=== PATIENT | male | born 1955 | race Caucasian/White ===

== ENCOUNTER → 2020-07-08 | Outpatient (CLI) | payer MEDICARE | END | disposition home or self-care (01) | LOC: RAH 13:07 | PROVIDERS: ATTEND Family Medicine Sports Medicine | DX: M17.11 Unilateral primary osteoarthritis, right knee (principal); M25.461 Effusion, right knee; Z98.890 Other specified postprocedural states | CPT/HCPCS: 73721 ==

== ENCOUNTER → 2020-10-07 | Outpatient (CLI) | payer MEDICARE | END | disposition home or self-care (01) | LOC: RAH 07:34 | PROVIDERS: ATTEND Family Medicine Sports Medicine | DX: M43.17 Spondylolisthesis, lumbosacral region (principal); M47.27 Other spondylosis with radiculopathy, lumbosacral region; M48.07 Spinal stenosis, lumbosacral region | CPT/HCPCS: 72148 ==

== ENCOUNTER 2020-11-05 12:00 | Day surgery (SDC) | payer MEDICARE ==
[2020-11-04 11:03] VITALS: BP 138/80
[~2020-11-05] VITALS: Ht 185.4 cm; Wt 112.3 kg
[2020-11-05] MEDS ORDERED: IOPAMIDOL 10 ML VIAL ONE (12:18)
[2020-11-05] MEDS ORDERED: LIDOCAINE HCL MPF 1% 5ML VIAL ONE (12:41)
[2020-11-05] MEDS ORDERED: DEXAMETHASONE SOD PHOSPHATE 4 MG/ML 1ML VIAL ONE (12:42)
[2020-11-05 12:44] VITALS: BP 145/81
[2020-11-05] MEDS ORDERED: SODIUM CHLORIDE 0.9% 10 ML VIAL ONE (12:56)
[2020-11-05 13:30] VITALS: BP 136/83
[2020-11-05 13:45] VITALS: BP 136/86
[2020-11-05 14:00] VITALS: BP 134/85
[2020-11-05 14:15] VITALS: BP 136/86
== END 2020-11-05 14:20 | disposition home or self-care (01) ==
LOC: DAH 12:00
PROVIDERS: ATTEND Family Medicine Sports Medicine
DX: M51.16 Intervertebral disc disorders with radiculopathy, lumbar region (principal); Z20.822 Contact with and (suspected) exposure to COVID-19; G89.29 Other chronic pain; Z20.828 Contact with and (suspected) exposure to other viral communicable diseases; Z79.899 Other long term (current) drug therapy; Z98.890 Other specified postprocedural states
CPT/HCPCS: 62323; A4215 ×2; A4221 ×2; A4222 ×2; A4223 ×3; A4606; A4663 ×2; C9803; J1100; J3490; Q9966; U0003; 62320; 77003

== ENCOUNTER 2021-08-02 08:00 | Observation (INO) | payer MEDICARE ==
[~2021-08-02] VITALS: Ht 185.4 cm; Wt 114.2 kg
[2021-08-02 10:15] VITALS: BP 151/80
[2021-08-02 10:32] LABS: BASOPHILS % (AUTO) 0.5 % (0.0-5.0); EOSINOPHILS % (AUTO) 3.7 % (0.0-8.0); HEMATOCRIT 49.3 % (42-54); LYMPHOCYTES % (AUTO) 18.3 % (21.0-51.0); MEAN CORPUSCULAR HGB CONC 33.1 g/dL (32.0-36.0); MEAN CORPUSCULAR VOLUME 87.7 fL (79-99); MONOCYTES % (AUTO) 9.8 % (3.0-13.0); NEUTROPHILS % (AUTO) 67.2 % (40.0-77.0); PLATELET COUNT (AUTO) 190 K/uL (130-400); RED BLOOD CELL COUNT(AUTO) 5.62 MIL/uL (4.50-6.20); RED CELL DISTRIBUTION WIDTH 13.5 % (11.0-15.5); WHITE BLOOD COUNT (AUTO) 8.8 K/uL (4.8-10.8)
[2021-08-02 10:36] LABS: APPEARANCE,URINE Clear (CLEAR); BILIRUBIN,URINE Negative (NEGATIVE); COLOR,URINE Yellow (YELLOW); GLUCOSE, URINE (UA) Negative (NEGATIVE); KETONES,URINE Negative (NEGATIVE); LEUKOCYTE ESTERASE ,URINE Negative (NEGATIVE); NITRATE,URINE Negative (NEGATIVE); OCCULT BLOOD,URINE Negative (NEGATIVE); PROTEIN,URINE Negative (NEGATIVE); UROBILINOGEN,URINE 0.2 mg/dL (0.2-1.0)
[2021-08-02 10:40] LABS: CREATININE 1.1 mg/dL (0.5-1.5); POTASSIUM 4.9 mmol/L (3.5-5.1)
[2021-08-02 10:43] LABS: INR 0.97 (0.85-1.15); PROTHROMBIN TIME 10.6 SEC (9.6-11.6)
[2021-08-03] MEDS ORDERED: AEC81 PO (13:04)
[2021-08-03] MEDS ORDERED: ATOR10TA69 PO (13:04)
[2021-08-03] MEDS ORDERED: ASCO500C18 PO (13:04)
[2021-08-04] VITALS (29 sets, daily range): BP systolic 115–162; BP diastolic 52–92
[2021-08-04] MEDS ORDERED: CEFAZOLIN SODIUM 1 GM VIAL ONE (08:31)
[2021-08-04] MEDS ORDERED: TRANEXAMIC ACID 1000MG/10ML ONE ×2 (08:31→15:04)
[2021-08-04] MEDS ORDERED: LACTATED RINGERS 1000ML 1,000 ML IV ONE (09:07)
[2021-08-04] MEDS: CEFAZOLIN SODIUM 1 GM VIAL ONE ×2 (09:24→12:45)
[2021-08-04] MEDS ORDERED: PROPOFOL 10 MG/ML 20ML VIAL IV ONE (11:40)
[2021-08-04] MEDS ORDERED: ONDANSETRON 4MG INJ ONE (11:40)
[2021-08-04] MEDS ORDERED: LIDOCAINE PF 100MG/5ML (2%) SYRINGE 5ML ONE (11:40)
[2021-08-04] MEDS ORDERED: SUCCINYLCHOLINE CHLORIDE 20 MG/ML 10 ML VIAL ONE (11:40)
[2021-08-04] MEDS ORDERED: FENTANYL CITRATE PF 50 MCG/1 ML 2ML VIAL ONE (11:40)
[2021-08-04] MEDS ORDERED: GLYCOPYRROLATE 1 MG/5 ML SYRINGE ONE (11:40)
[2021-08-04] MEDS ORDERED: DEXAMETHASONE SOD PHOSPHATE 10MG/ML 1ML VIAL ONE (11:40)
[2021-08-04] MEDS ORDERED: ROCURONIUM 10MG/1ML SYR 10 MG/ML ML ONE (11:41)
[2021-08-04] MEDS ORDERED: MIDAZOLAM HCL 1 MG/ML 2ML VIAL ONE (11:41)
[2021-08-04] MEDS ORDERED: NEOSTIGMINE 5MG/5ML SYR IV ONE (11:41)
[2021-08-04] MEDS ORDERED: FENTANYL CITRATE PF 50 MCG/1 ML 5ML AMP IV ONE (14:14)
[2021-08-04] MEDS ORDERED: TEMAZEPAM 15 MG CAPSULE PO PRN (14:30)
[2021-08-04] MEDS ORDERED: CALCIUM CARB 500MG PO PRN (14:30)
[2021-08-04] MEDS ORDERED: ONDANSETRON 4MG INJ IVP PRN (14:30)
[2021-08-04] MEDS ORDERED: POTASSIUM CHLORIDE 20MEQ/100ML 100 ML IV PRN (14:30)
[2021-08-04] MEDS ORDERED: FERROUS FUMARATE 324 MG TABLET PO PRN (14:30)
[2021-08-04] MEDS ORDERED: POTASSIUM CHLORIDE 10% ELIXIR 20 MEQ/15 ML UDCUP PO PRN (14:30)
[2021-08-04] MEDS ORDERED: OXYCODONE HCL 5 MG TAB PO PRN (14:30)
[2021-08-04] MEDS: 0.9%NACL 1000ML 1,000 ML IV SCH (14:30)
[2021-08-04] MEDS: ACETAMINOPHEN 500 MG TABLET PO SCH ×2 (14:30→20:03)
[2021-08-04] MEDS ORDERED: LIDOCAINE HCL-MPF 1% 2ML VIAL IV PRN (14:30)
[2021-08-04] MEDS ORDERED: DiphenhydrAMINE HCL 50 MG/ML VIAL IVP PRN (14:30)
[2021-08-04] MEDS ORDERED: KCL 20 MEQ ERTAB PO PRN (14:30)
[2021-08-04] MEDS ORDERED: MEPERIDINE-PF 25 MG/ML SYG ONE (15:32)
[2021-08-04] MEDS: TRAMADOL HCL 50 MG TABLET PO PRN (18:27)
[2021-08-04] MEDS: OXYCODONE HCL 5 MG TAB PO PRN ×2 (19:00→23:04)
[2021-08-04] MEDS: ASPIRIN 81 MG EC TAB PO SCH (20:01)
[2021-08-04] MEDS: CELECOXIB 200 MG CAP PO SCH (20:01)
[2021-08-04] MEDS: CEFAZOLIN SODIUM 1 GM VIAL IVP SCH (20:01)
[2021-08-04] MEDS: FAMOTIDINE 20MG TAB PO SCH (20:03)
[2021-08-04] MEDS: ATORVASTATIN 10 MG TABLET PO SCH (20:03)
[2021-08-04] MEDS: PREGABALIN 25 MG CAP PO SCH (20:04)
[2021-08-05] MEDS: 0.9%NACL 1000ML 1,000 ML IV SCH ×2 (00:09→10:30)
[2021-08-05] MEDS: CEFAZOLIN SODIUM 1 GM VIAL IVP SCH (03:05)
[2021-08-05] MEDS: OXYCODONE HCL 5 MG TAB PO PRN ×5 (03:06→20:47)
[2021-08-05 04:52] VITALS: BP 133/75
[2021-08-05 04:59] LABS: MEAN CORPUSCULAR HEMOGLOBIN 29.7 pg (27.0-33.0); MEAN CORPUSCULAR HGB CONC 33.3 g/dL (32.0-36.0); RED BLOOD CELL COUNT(AUTO) 4.72 MIL/uL (4.50-6.20); RED CELL DISTRIBUTION WIDTH 13.3 % (11.0-15.5); WHITE BLOOD COUNT (AUTO) 17.5 K/uL (4.8-10.8)
[2021-08-05 05:03] LABS: CREATININE 1.3 mg/dL (0.5-1.5); POTASSIUM 4.7 mmol/L (3.5-5.1)
[2021-08-05] MEDS: ACETAMINOPHEN 500 MG TABLET PO SCH ×3 (05:42→22:00)
[2021-08-05 08:04] VITALS: BP 135/74
[2021-08-05] MEDS: KETOROLAC 15MG/ML VIAL (15MG/ML) IV PRN ×2 (08:08→14:07)
[2021-08-05] MEDS: TAMSULOSIN HCL 0.4 MG CAP.ER.24H PO SCH (09:00)
[2021-08-05] MEDS: CELECOXIB 200 MG CAP PO SCH ×2 (10:43→19:28)
[2021-08-05] MEDS: POLYETHYLENE GLYCOL 3350 17 GM POWD.PACK PO SCH (10:43)
[2021-08-05] MEDS: PREGABALIN 25 MG CAP PO SCH ×2 (10:43→19:29)
[2021-08-05] MEDS: ASCORBIC ACID 500 MG TAB PO SCH (10:43)
[2021-08-05] MEDS: ASPIRIN 81 MG EC TAB PO SCH ×2 (10:43→19:28)
[2021-08-05] MEDS: FAMOTIDINE 20MG TAB PO SCH ×2 (10:43→19:28)
[2021-08-05 11:16] VITALS: BP 124/76
[2021-08-05 15:51] VITALS: BP 126/78
[2021-08-05] MEDS: ATORVASTATIN 10 MG TABLET PO SCH (19:28)
[2021-08-05] MEDS: TRAMADOL HCL 50 MG TABLET PO PRN (19:29)
[2021-08-05 19:48] VITALS: BP 111/67
[2021-08-05 23:29] VITALS: BP 129/68
[2021-08-06] MEDS: OXYCODONE HCL 5 MG TAB PO PRN ×3 (03:21→15:42)
[2021-08-06 04:35] VITALS: BP 133/76
[2021-08-06] MEDS: ACETAMINOPHEN 500 MG TABLET PO SCH ×2 (05:34→14:30)
[2021-08-06 08:05] VITALS: BP 102/69
[2021-08-06] MEDS: PREGABALIN 25 MG CAP PO SCH (09:35)
[2021-08-06] MEDS: POLYETHYLENE GLYCOL 3350 17 GM POWD.PACK PO SCH (09:35)
[2021-08-06] MEDS: ASPIRIN 81 MG EC TAB PO SCH (09:35)
[2021-08-06] MEDS: ASCORBIC ACID 500 MG TAB PO SCH (09:35)
[2021-08-06] MEDS: FAMOTIDINE 20MG TAB PO SCH (09:36)
[2021-08-06] MEDS: TAMSULOSIN HCL 0.4 MG CAP.ER.24H PO SCH (09:36)
[2021-08-06] MEDS: CELECOXIB 200 MG CAP PO SCH (09:36)
[2021-08-06 11:05] VITALS: BP 110/68
[2021-08-06] MEDS ORDERED: HYDR-4060 PO (12:17)
[2021-08-07] MEDS ORDERED: BISACODYL 10 MG SUPP.RECT RC PRN (14:30)
== END 2021-08-06 16:41 | disposition home health service (06) ==
LOC: EDSTATUS 08:00 → DAHIP 08-04 06:21 → 3BH 08-04 17:46
PROVIDERS: ADMIT Orthopaedic Surgery; ATTEND Orthopaedic Surgery
DX: M17.11 Unilateral primary osteoarthritis, right knee (principal); Z20.822 Contact with and (suspected) exposure to COVID-19; M25.661 Stiffness of right knee, not elsewhere classified; E78.5 Hyperlipidemia, unspecified; E66.9 Obesity, unspecified; N40.0 Benign prostatic hyperplasia without lower urinary tract symptoms; Z79.899 Other long term (current) drug therapy
CPT/HCPCS: 27447; 36415 ×2; 80048 ×2; 81003; 85025; 85027; 85610; 87088; 87635; 87641; 96374; 96375; 96376; 97039 ×4; 97116 ×4; 97161; 97530 ×3; A4213; A4215; A4216; A4221; A4222; A4223 ×2; A4600; A4649 ×5; A4663; A4930 ×2; A5120; A9272; C1776; G0378 ×48; J0330; J0690 ×4; J1100; J1885 ×2; J2001; J2175; J2250; J2405 ×3; J2704; J2710; J3010 ×2; J3490 ×3; J7120 ×2

== ENCOUNTER → 2023-01-25 | Outpatient (CLI) | payer OTHER ==
[~2023-01-25] MED LIST: AEC81 PO; ASCO500C18 PO; ATOR10TA69 PO; HYDR-4060 PO
== END | disposition home or self-care (01) ==
LOC: OIH 08:33
PROVIDERS: ATTEND Family Medicine
DX: Z13.6 Encounter for screening for cardiovascular disorders (principal)
CPT/HCPCS: 75571

== ENCOUNTER → 2023-07-18 | Outpatient (CLI) | payer MEDICARE ==
[2023-07-18 12:23] LABS: HEMOGLOBIN A1C 5.4 % (4.0-6.0)
[2023-07-18 12:35] LABS: CHOLESTEROL 150 mg/dL (<200); HDL CHOLESTEROL 49 mg/dL (29-71); LDL DIRECT 97 mg/dL (0-99); TRIGLYCERIDES 97 mg/dL (30-200)
== END | disposition home or self-care (01) ==
LOC: LAB 08:50
PROVIDERS: ATTEND Student in an Organized Health Care Education/Training Program
DX: I48.0 Paroxysmal atrial fibrillation (principal); E78.5 Hyperlipidemia, unspecified; I10 Essential (primary) hypertension; Z79.01 Long term (current) use of anticoagulants; Z79.899 Other long term (current) drug therapy
CPT/HCPCS: 36415; 80061; 83036

== ENCOUNTER → 2024-08-24 | Outpatient (CLI) | payer MEDICARE | END | disposition home or self-care (01) | LOC: SHCH 13:31 | PROVIDERS: ATTEND Student in an Organized Health Care Education/Training Program | DX: R42 Dizziness and giddiness (principal) | CPT/HCPCS: 93306 ==